=== PATIENT | female | born 1990 | race Caucasian/White ===

== ENCOUNTER 2017-04-08 09:53 | Day surgery (SDC) | payer OTHER ==
[~2017-04-08 09:53] MED LIST: ACETAMINOPHEN 160 MG/5 ML BTL PO PRN; DEXAMETHASONE SOD PHOSPHATE 10 MG/ML VIAL IV PRN; MORPHINE SULFATE 2 MG/ML DISP.SYRIN IV PRN; MORPHINE SULFATE 4 MG/ML SYRG IV PRN; ONDANSETRON HCL/PF 2 MG/ML VIAL IV PRN; PROMETHAZINE HCL 5 MG in DEXTROSE 5 % IN WATER 50 ML IV PRN; RINGERS SOLUTION,LACTATED 1,000 ML IV PRN; oxyCODONE HCL 5 MG/5 ML UDC PO PRN
--- OUTSIDE RECORDS SUMMARY | 2017-04-08 09:58 | XMS REPORT | Continuity of Care Document ---
:1990 Author Organization [facility] ([facility]) Address [address] [place] [address] Phone [phone] Care Team Providers Name Role Phone Provider, No-Primary Care Primary Care Provider Unavailable Source Comments This disclosure is being made pursuant to the Care Everywhere program, applicable federal and state laws, and may not contain all informaitonavailable regarding this patient.[facility] ([facility]) Active Allergies and Adverse Reactions Allergen Noted Date Severity Reactions Comments Eletriptan Hbr 03/30/2010 OTHER Body tenses up Current Medications Prescription Sig. Disp. Refills Start Date End Date Status LORazepam (ATIVAN) 0.5 mg Take 0.5-1 mg by 03/30/2010 Active tablet mouth daily as needed. PARoxetine (PAXIL) 30 mg Take 30 mg by Active tablet mouth daily. Active Problems Not on file Social History Tobacco Use Types Packs/Day Years Used Date Never Assessed Last Filed Vital Signs Vital Sign Reading Time Taken Blood Pressure 103/77 03/30/2010 6:23 AM CDT Pulse 80 03/30/2010 6:23 AM CDT Temperature 35.4 C (95.7 F) 03/30/2010 6:23 AM CDT Respiratory Rate 18 03/30/2010 6:23 AM CDT Height 1.676 m (5' 6") 03/30/2010 6:23 AM CDT Weight 63.504 kg (140 lb) 03/30/2010 6:23 AM CDT Body Mass Index 22.61 03/30/2010 6:23 AM CDT Oxygen Saturation 99% 03/30/2010 6:23 AM CDT Plan of Care Health Maintenance Due Date Last Done Comments Hepatitis B Vaccine (1 of 3 - Primary Series) 1989 Tdap Vaccine 2000 Cervical Cancer Screening 2007 Lipid Disorder Screening 2007 MMR Vaccine 2007 Td Vaccine 2007 Varicella Vaccine (1 of 2 - Adult - No Evidence of 2007 Immunity) Influenza Vaccine: Seasonal (#1) 2016 Results from Last 3 Months Not on file
[2017-04-08] MEDS ORDERED: RINGERS SOLUTION,LACTATED 1,000 ML IV ONE ×2 (10:40→13:30)
[2017-04-08] MEDS ORDERED: SCOPOLAMINE HYDROBROMIDE 1.5 MG PATC TD ONE (11:00)
[2017-04-08] MEDS ORDERED: BUPIVACAINE HCL 50 ML VIAL IJ ONE (11:50)
[2017-04-08] MEDS ORDERED: diphenhydrAMINE HCL 50 MG/ML VIAL IV PRN (12:16)
[2017-04-08] MEDS ORDERED: MORPHINE SULFATE 4 MG/ML SYRG IV ONE (12:16)
[2017-04-08] MEDS ORDERED: MORPHINE SULFATE 4 MG/ML SYRG IV PRN (12:16)
[2017-04-08] MEDS ORDERED: NALOXONE HCL 0.4 MG/ML VIAL IV PRN (12:16)
[2017-04-08] MEDS ORDERED: PROMETHAZINE HCL 12.5 MG in DEXTROSE 5 % IN WATER 50 ML IV PRN ×2 (12:16)
[2017-04-08 13:35] VITALS: BP 130/95
== END 2017-04-08 09:54 | disposition home or self-care (01) ==
LOC: AMB 09:53
PROVIDERS: ATTEND Allergy & Immunology
PROC: 0CTQXZZ Resection of Adenoids, External Approach (ICD-10-PCS; 2017-04-08)
PROC: 0CTPXZZ Resection of Tonsils, External Approach (ICD-10-PCS; principal; 2017-04-08 10:55)
DX: J35.03 Chronic tonsillitis and adenoiditis (principal); Z68.27 Body mass index [BMI] 27.0-27.9, adult

== ENCOUNTER 2017-04-11 04:48 | Emergency (ER) | payer OTHER ==
[2017-04-11] MEDS ORDERED: HYDROmorphone HCL 2 MG/ML VIAL IV ONE (05:06)
[2017-04-11] MEDS ORDERED: METOCLOPRAMIDE HCL 5 MG/ML VIAL IV ONE (05:07)
[2017-04-11] MEDS ORDERED: METOCLOPRAMIDE HCL 5 MG/ML VIAL ONE (05:12)
[2017-04-11] MEDS ORDERED: KETOROLAC TROMETHAMINE 30 MG/ML VIAL ONE (05:12)
[2017-04-11] MEDS ORDERED: HYDROmorphone HCL 2 MG/ML VIAL ONE (05:12)
[2017-04-11] MEDS ORDERED: KETOROLAC TROMETHAMINE 30 MG/ML VIAL IV ONE (05:14)
[2017-04-11] MEDS ORDERED: DEXAMETHASONE SOD PHOSPHATE 10 MG/ML VIAL IV ONE (05:15)
--- NOTE | 2017-04-11 05:15 | ERNOTE ---
ENT HPI Date of Service: 04/11/17 Presenting Symptoms: other - post-tonsillectomy pain Time Seen by Provider: 04/11/17 05:00 - Immun/Allergies/Home Medications Immunizations: IMMUNIZATION HX History of Influenza Vaccine Yes Hx Pneumococcal Vaccination No Allergies/Adverse Reactions: Allergies Allergy/AdvReac Type Severity Reaction Status Date / Time eletriptan HBr [From Relpax] AdvReac Mild Muscle Pain Verified 04/11/17 04:56 Home Medications: HOME MEDICATIONS Fexofenadine/Pseudoephedrine [Carrie-D 24 Hour Tablet] 1 each PO DAILY [Last Taken Unknown] Norgestimate-Ethinyl Estradiol [Ortho Tri-Cyclen] 1 each PO DAILY 04/07/17 [ Last Taken Unknown] Fluticasone Propionate [Flonase] 2 spray NS DAILY 04/08/17 [Last Taken Unknown] Acetaminophen [Tylenol] 325 mg PO Q4H PRN 04/11/17 [Last Taken 04/10/17 14:55] Ibuprofen [Motrin] 200 mg PO PRN PRN 04/11/17 [Last Taken 04/10/17 19:20] oxyCODONE HCL [Roxicodone solution] 10 mg PO Q4H PRN 04/11/17 [Last Taken 23:20] - History of Present Illness Narrative: Had tonsillectomy 3 days ago. Has been taking oxycodone 10 mg every 4 hours, tylenol 325 mg every 4 hours, and ibuprofen 400 mg every 4 hours. Pain has not improved and now is 10/10. Has been gargling with 1/2 H20 + 1/2 H2O2 solution. Had some vomiting this morning with about 100 ml of blood. No previous bleeding. Review of Systems - Review of Systems EYE: Present: no symptoms reported ENT: Present: See HPI Respiratory: Present: no symptoms reported Cardiology: Present: no symptoms reported Genitourinary: Present: no symptoms reported Musculoskeletal: Present: no symptoms reported - Patient's Past Medical History Patient History - Medical: Anxiety, Depression, Headache, Kidney stone, Migraines, UTI'S, Other Patient History - Cardiac/Respiratory: Bronchitis Patient History - Cancer: No Hx of Cancer Patient History - Surgical Procedures: , T & A, Other, Orthopedic Patient History - Other: None LMP (Calendar): 04/04/17 - Family History Mother Family History - Medical: Diabetes Type 2, Seizures, Other Family History - Cardiac/Respiratory: Bronchitis, COPD, Other Family History - Cancer: No pertinent family hx Father Family History - Medical: Other Family History - Cardiac/Respiratory: History Unknown Family History - Cancer: History Unknown - Social History Living Situations: home Abuse History: No History of abuse Psych History: Hx of Anxiety, Hx of Depression Smoking Status: Never smoker Alcohol Use: rarely Drug Use: none - Immunizations Hx Pneumococcal Vaccination: No History of Influenza Vaccine: Yes Physical Exam - Physical Exam General Appearance: Present: wd/wn, alert, severe distress, anxious, irritable, crying Eye Exam: Normal inspection: bilateral Ears, Nose, Throat: Present: other - Tonsillectomy sulcus post-op without bleeding. Pharyngeal swelling with erythemia. Neck: Present: normal inspection Respiratory: Present: no respiratory distress Cardiovascular/Chest: Present: regular rate, rhythm Extremity Exam: Present: normal inspection Neurological Exam: Present: alert, oriented ED Progress - Vital Signs Patient's Vital Signs:: I have reviewed the patient's vital signs. Vital Signs: Vital Signs 04/11/17 04:51 Temperature 37.6 C H Pulse Rate 116 H Respiratory 18 Rate Blood Pressure 157/73 O2 Sat by Pulse 98 Oximetry - Progress/Reassessment Chief Complaint: Sore Throat Progress:: Improved Progress Note-Subjective: 04/11/17 05:40 After course of meds she is improved, sitting up comfortably eating a popcicle. Plan - Plan Plan: home with revision of pain meds. Departure Clinical Impression: Post-operative pain - Departure Disposition: Home self-care Condition: Good Instructions: Tonsillectomy, Adult, Care After Additional Instructions: Revise pain medicine: 1. Use alternating tylenol 1000 mg with ibuprofen 600 mg every 3 hours 2. Use oxycodone every 4 hours for breakthrough pain 3. Continue water/peroxide gargles Follow up with ENT surgeon
--- OUTSIDE RECORDS SUMMARY | 2017-04-11 05:16 | XMS REPORT | Continuity of Care Document ---
:1990 Author Organization [facility] ([facility]) Address [address] [place] [address] Phone [phone] Care Team Providers Name Role Phone Provider, No-Primary Care Primary Care Provider Unavailable Source Comments This disclosure is being made pursuant to the Care Everywhere program, applicable federal and state laws, and may not contain all informaitonavailable regarding this patient.[facility] ([facility]) Active Allergies and Adverse Reactions Allergen Noted [...]
[2017-04-11] MEDS ORDERED: NORMAL SALINE 500 ML IV ONE (05:17)
[2017-04-11] MEDS ORDERED: DEXAMETHASONE SOD PHOSPHATE 10 MG/ML VIAL ONE (05:21)
[2017-04-11 06:06] VITALS: BP 122/70
== END 2017-04-11 06:05 | disposition home or self-care (01) ==
LOC: ER 04:48
DX: G89.18 Other acute postprocedural pain (principal); Z87.440 Personal history of urinary (tract) infections; Z87.442 Personal history of urinary calculi

== ENCOUNTER 2017-04-15 10:23 | Emergency (ER) | payer OTHER ==
--- OUTSIDE RECORDS SUMMARY | 2017-04-15 10:46 | XMS REPORT | Continuity of Care Document ---
:1990 Author Organization [facility] ([facility]) Address [address] [place] [address] Phone [phone] Care Team Providers Name Role Phone Provider, No-Primary Care Primary Care Provider Unavailable Source Comments This disclosure is being made pursuant to the Care Everywhere program, applicable federal and state laws, and may not contain all informaitonavailable regarding this patient.[facility] ([facility]) Active Allergies and Adverse Reactions Allergen Noted [...]
[2017-04-15] MEDS ORDERED: NORMAL SALINE 1,000 ML IV ONE (10:55)
[2017-04-15] MEDS ORDERED: MORPHINE SULFATE 4 MG/ML SYRG IV ONE (10:56)
[2017-04-15] MEDS ORDERED: MORPHINE SULFATE 4 MG/ML SYRG ONE (11:04)
[2017-04-15 11:09] LABS: Hematocrit 41.8 % (37.0-47.0); Hemoglobin 14.8 gm/dL (12.5-16.0); Mean Cell Volume 84.6 fl (78-100); Mean Corpuscular Hgb Conc 35.4 g/dl (32-36); Mean Platelet Volume 9.7 fl (6.0-9.5); Neutrophil # 6.8 K/mm3 (1.3-6.0); Neutrophil % 75.7 % (42-75.0); Platelet Count 279 K/mm3 (150-450); Red Blood Count 4.94 M/mm3 (4.2-5.4); Red Cell Distribution Width 11.8 % (11.5-14.0)
[2017-04-15] MEDS ORDERED: ONDANSETRON HCL/PF 2 MG/ML VIAL ONE (11:15)
[2017-04-15] MEDS ORDERED: ONDANSETRON HCL/PF 2 MG/ML VIAL IV ONE (11:18)
--- NOTE | 2017-04-15 12:42 | ERNOTE ---
Medical Problem HPI - Narrative Date of Service: 04/15/17 - General Chief Complaint: General Assessment Time Seen by Provider: 04/15/17 10:38 Source: patient Exam Limitations: no limitations - Immun/Allergies/Home Medications Immunizations: IMMUNIZATION HX History of Influenza Vaccine Yes Hx Pneumococcal Vaccination No Allergies/Adverse Reactions: Allergies eletriptan HBr [From Relpax] Adverse Reaction (Mild, Verified 04/15/17 10:30) Muscle Pain Home Medications: HOME MEDICATIONS Fexofenadine/Pseudoephedrine [Carrie-D 24 Hour Tablet] 1 each PO DAILY [Last Taken Unknown] Norgestimate-Ethinyl Estradiol [Ortho Tri-Cyclen] 1 each PO DAILY 04/07/17 [ Last Taken Unknown] Fluticasone Propionate [Flonase] 2 spray NS DAILY 04/08/17 [Last Taken Unknown] Acetaminophen [Tylenol] 325 mg PO Q4H PRN 04/11/17 [Last Taken 04/10/17 14:55] Ibuprofen [Motrin] 200 mg PO PRN PRN 04/11/17 [Last Taken 04/10/17 19:20] oxyCODONE HCL [Roxicodone solution] 10 mg PO Q4H PRN 04/11/17 [Last Taken 23:20] - History of Present History Narrative: Patient presents to the ED for bleeding after tonillsectomy. She relates a fair amount of blood [employer]ICIAN from her throat. She has been having severe pain in her throat for several days and that continues but no new acute worsening. Some cough. Has appointment with Dr Angel at 1pm but came here d/t the bleeding. Timing: resolved prior to arrival Severity: severe Modifying Factors - (Improves): Present: other - nothing Modifying Factors - (Worsens): Present: other - swallowing Review of Systems - Review of Systems ENT: Present: See HPI Respiratory: Absent: shortness of breath Cardiology: Absent: chest pain Gastrointestinal/Abdominal: Present: eating less Skin: Absent: rash - Patient's Past Medical History Patient History - Medical: Anxiety, Depression, Headache, Kidney stone, Migraines, UTI'S, Other Patient History - Cardiac/Respiratory: Bronchitis Patient History - Cancer: No Hx of Cancer Patient History - Surgical Procedures: , T & A, Other, Orthopedic Patient History - Other: None LMP (females 10-50): now LMP (Calendar): 04/04/17 - Family History Mother Family History - Medical: Diabetes Type 2, Seizures, Other Family History - Cardiac/Respiratory: Bronchitis, COPD, Other Family History - Cancer: No pertinent family hx Father Family History - Medical: Other Family History - Cardiac/Respiratory: History Unknown Family History - Cancer: History Unknown - Social History Living Situations: home Abuse History: No History of abuse Psych History: Hx of Anxiety, Hx of Depression Alcohol Use: rarely Drug Use: none - Immunizations Hx Pneumococcal Vaccination: No History of Influenza Vaccine: Yes Physical Exam - Physical Exam General Appearance: Present: alert, no apparent distress Eye Exam: Normal inspection: bilateral, PERRL: bilateral Ears, Nose, Throat: Present: other - post-surgical. There is a small amount of adherent blood left tonsillar pillar. No active bleeding. No abscess noted. No evidence of epiglottitis. Respiratory: Present: no respiratory distress, normal breath sounds, lungs clear Cardiovascular/Chest: Present: regular rate, rhythm Gastrointestinal/Abdominal: Present: normal bowel sounds, nontender, soft Extremity Exam: Present: normal inspection Neurological Exam: Present: alert, normal mood/affect, no motor/sensory deficits Skin Exam: Absent: skin rash ED Progress - Results and Orders Patient's Lab Results:: I have reviewed the patient's lab results. - Vital Signs Patient's Vital Signs:: I have reviewed the patient's vital signs. Vital Signs: Vital Signs 04/15/17 04/15/17 10:28 11:53 Temperature 36.4 C L Pulse Rate 133 H 91 Respiratory 15 16 Rate Blood Pressure 147/117 O2 Sat by Pulse 100 97 Oximetry - Progress/Reassessment Chief Complaint: General Assessment Progress Note-Subjective: 04/15/17 12:39 patient seen in the ED by Dr Angel, ENT. He wrote pain medication script after his procedure and will see the patient in F/U. IV fluids given, CBC reviewed. She feels like going home. I disucssed warning signs and reasons to return as well as the need for close f/u. Departure - Departure Clinical Impression: Post-tonsillectomy hemorrhage Disposition: Home self-care Condition: Stable Instructions: Tonsillectomy, Adult, Care After Additional Instructions: Rest. Fluids. Follow-up as directed. Return for increased pain, bleeding or if your condition worsens or changes in any way.
[2017-04-15 13:52] VITALS: BP 143/97
== END 2017-04-15 12:43 | disposition home or self-care (01) ==
LOC: ER 10:23
DX: I97.620 Postprocedural hemorrhage of a circulatory system organ or structure following other procedure (principal); G89.18 Other acute postprocedural pain
CPT/HCPCS: 36415; 42960; 85025; 96374; 96375; 99284; J2405

== ENCOUNTER 2017-04-17 17:40 | Emergency (ER) | payer OTHER ==
[2017-04-17] MEDS ORDERED: oxyCODONE HCL 5 MG TABLET PO ONE (18:06)
--- OUTSIDE RECORDS SUMMARY | 2017-04-17 18:06 | XMS REPORT | Continuity of Care Document ---
:1990 Author Organization [facility] ([facility]) Address [address] [place] [address] Phone [phone] Care Team Providers Name Role Phone Provider, No-Primary Care Primary Care Provider Unavailable Source Comments This disclosure is being made pursuant to the Care Everywhere program, applicable federal and state laws, and may not contain all informaitonavailable regarding this patient.[facility] ([facility]) Active Allergies and Adverse Reactions Allergen [...]
[2017-04-17 18:14] LABS: Hematocrit 44.8 % (37.0-47.0); Hemoglobin 15.5 gm/dL (12.5-16.0); Mean Cell Volume 85.8 fl (78-100); Mean Corpuscular Hemoglobin 29.7 pg (27-31); Mean Corpuscular Hgb Conc 34.6 g/dl (32-36); Mean Platelet Volume 9.7 fl (6.0-9.5); Neutrophil # 2.5 K/mm3 (1.3-6.0); Neutrophil % 51.5 % (42-75.0); Platelet Count 329 K/mm3 (150-450); Red Blood Count 5.22 M/mm3 (4.2-5.4); Red Cell Distribution Width 11.6 % (11.5-14.0); White Blood Count 4.9 K/mm3 (4.0-10.5)
[2017-04-17] MEDS ORDERED: oxyCODONE HCL 5 MG TABLET ONE (18:20)
--- NOTE | 2017-04-17 18:29 | ERNOTE ---
Medical Problem HPI - Narrative Date of Service: 04/17/17 - General Chief Complaint: General Assessment Time Seen by Provider: 04/17/17 18:01 Source: patient, RN notes reviewed, old records Exam Limitations: no limitations - Immun/Allergies/Home Medications Immunizations: IMMUNIZATION HX Immunizations Up to Date Yes History of Influenza Vaccine Yes Hx Pneumococcal Vaccination No Allergies/Adverse Reactions: Allergies eletriptan HBr [From Relpax] Adverse Reaction (Mild, Verified 04/17/17 17:48) Muscle Pain Home Medications: HOME MEDICATIONS Fexofenadine/Pseudoephedrine [Carrie-D 24 Hour Tablet] 1 each PO DAILY [Last Taken Unknown] Norgestimate-Ethinyl Estradiol [Ortho Tri-Cyclen] 1 each PO DAILY 04/07/17 [ Last Taken Unknown] Fluticasone Propionate [Flonase] 2 spray NS DAILY 04/08/17 [Last Taken Unknown] Acetaminophen [Tylenol] 325 mg PO Q4H PRN 04/11/17 [Last Taken 04/10/17 14:55] Ibuprofen [Motrin] 200 mg PO PRN PRN 04/11/17 [Last Taken 04/10/17 19:20] oxyCODONE HCL [Roxicodone solution] 10 mg PO Q4H PRN 04/11/17 [Last Taken 23:20] Roxicodone 04/17/17 [Last Taken Unknown] - History of Present History Narrative: 26 y/o female ambulatory to the ED for bleeding in her throat after having a tonsillectomy on 04/08/17. She was seen here 2 days ago with the same problem. Dr. Angel, who performed the surgery, was contacted. He cauterized the area of bleeding. The patient reports having a small amount of bleeding yesterday that resolved on its own. Date (Duration): 04/17/17 Time (Timing): 17:00 Review of Systems - Review of Systems Constitutional: Absent: fever, chills EYE: Present: no symptoms reported ENT: Present: sore throat. Absent: nose congestion, nasal drainage Respiratory: Absent: shortness of breath, cough Cardiology: Absent: chest pain, syncope Gastrointestinal/Abdominal: Absent: nausea, vomiting Genitourinary: Present: no symptoms reported Musculoskeletal: Present: no symptoms reported Skin: Absent: rash, lesions Neurological: Absent: headache, dizziness/light-headedness Endocrine: Present: no symptoms reported Hematologic/Lymphatic: Absent: easy bruising, easy bleeding Psych: Present: no symptoms reported - Patient's Past Medical History Patient History - Medical: Anxiety, Depression, Headache, Kidney stone, Migraines, UTI'S, Other Patient History - Cardiac/Respiratory: Bronchitis Patient History - Cancer: No Hx of Cancer Patient History - Surgical Procedures: , T & A, Other, Orthopedic Patient History - Other: None LMP (females 10-50): last week LMP (Calendar): 04/04/17 - Family History Mother Family History - Medical: Diabetes Type 2, Seizures, Other Family History - Cardiac/Respiratory: Bronchitis, COPD, Other Family History - Cancer: No pertinent family hx Father Family History - Medical: Other Family History - Cardiac/Respiratory: History Unknown Family History - Cancer: History Unknown - Social History Living Situations: spouse Abuse History: No History of abuse Psych History: Hx of Anxiety, Hx of Depression Smoking Status: Never smoker Alcohol Use: rarely Drug Use: none - Immunizations Immunizations Up to Date: Yes Hx Pneumococcal Vaccination: No History of Influenza Vaccine: Yes Physical Exam - Physical Exam General Appearance: Present: wd/wn, alert, mild distress, anxious Eye Exam: Normal inspection: bilateral Ears, Nose, Throat: Present: other - small amount of blood present in tonsillar fossa bilaterally but no obvious sourse of bleeding. Absent: dry mucous membranes Neck: Present: normal inspection, nontender, supple. Absent: lymphadenopathy (R ), lymphadenopathy (L) Respiratory: Present: no respiratory distress, normal breath sounds, no accessory muscle use, lungs clear Cardiovascular/Chest: Present: regular rate, rhythm, no murmur, normal peripheral pulses Neurological Exam: Present: alert, oriented, normal mood/affect Skin Exam: Present: normal color, warm/dry ED Progress - Results and Orders Patient's Lab Results:: I have reviewed the patient's lab results. - Vital Signs Patient's Vital Signs:: I have reviewed the patient's vital signs. Vital Signs: Vital Signs 04/17/17 17:42 Temperature 36.0 C L Pulse Rate 100 Respiratory 16 Rate Blood Pressure 160/110 O2 Sat by Pulse 100 Oximetry - Progress/Reassessment Chief Complaint: General Assessment Progress:: Improved Progress Note-Subjective: 04/17/17 18:35 Patient has been drinking ice water, no active bleeding noted on re-exam. Hgb up to 15.5 from 14.8 on 04/15/17. 04/17/17 19:00 Again, no active bleeding noted. Patient tolerating oral intake. Departure - Departure Clinical Impression: Post-tonsillectomy hemorrhage Disposition: Home Follow Up Needed Condition: Stable Instructions: Tonsillectomy, Adult, Care After Additional Instructions: Push fluids Increase humidity at home Return as needed Referrals: Enrique Angel MD [Courtesy Staff] -
[2017-04-17 19:07] VITALS: BP 152/89
== END 2017-04-17 19:04 | disposition home or self-care (01) ==
LOC: ER 17:40
DX: K91.841 Postprocedural hemorrhage of a digestive system organ or structure following other procedure (principal); F41.8 Other specified anxiety disorders

== ENCOUNTER 2021-01-17 05:02 | Inpatient (IN) ==
[2021-01-17] MEDS ORDERED: RINGER'S SOLUTION,LACTATED 1,000 ML IV PRN ×2 (06:24→06:27)
[2021-01-17] MEDS ORDERED: Oxytocin/Ringers Lactate 20 UNITS/1,000 ML BAG IV ONE (06:39)
--- NOTE | 2021-01-17 07:05 | ANES ---
Anesthesia Pre Procedure Eval Vitals/Labs: Last Vital Signs Temp 36.7 C 01/17/21 06:15 Pulse 98 01/17/21 06:15 Resp 22 H 01/17/21 06:15 BP 128/80 01/17/21 06:15 Pulse Ox 98 01/17/21 06:15 HOME MEDICATIONS fexofenadine 180 mg tablet 180 mg PO DAILY 01/28/19 [Last Taken 01/16/21 08:00] acetaminophen 500 mg tablet 1,000 mg PO Q6H PRN tab 06/05/19 [Last Taken 01/07/21 1400] biotin 5 mg capsule 5 mg PO DAILY 06/11/20 [Last Taken 01/16/21 08:00] calcium carbonate 500 mg calcium (1,250 mg) chewable tablet 500 mg PO DAILY 06/11/20 [Last Taken Unknown] metoprolol succinate 25 mg tablet,extended release 24 hr 25 mg PO BID #60 tab 06/11/20 [Last Taken 01/17/21 04:00] aspirin 81 mg tablet,delayed release 81 mg PO DAILY #30 tab 08/12/20 [Last Taken 01/16/21 08:00] magnesium 250 mg tablet 1,000 mg PO DAILY PRN 08/12/20 [Last Taken Unknown] ferrous sulfate 325 mg (65 mg iron) tablet 325 mg PO DAILY #30 tab 10/28/20 [Last Taken 01/16/21 08:00] acetone (urine) test See Rx Instructions .ROUTE .MEDSUPPLY #100 ea 10/31/20 [Last Taken 01/08/21 0710] blood sugar diagnostic See Rx Instructions .ROUTE .MEDSUPPLY #100 ea 11/28/20 [Last Taken 01/08/21 0601] blood-glucose meter See Rx Instructions .ROUTE .MEDSUPPLY #1 ea 11/28/20 [Last Taken 01/08/21 0601] insulin syringe-needle U-100 1 mL 30 gauge x 5/16" See Rx Instructions .ROUTE .MEDSUPPLY #100 ea 11/28/20 [Last Taken 01/08/21 0601] lancets 30 gauge See Rx Instructions .ROUTE .MEDSUPPLY #100 ea 11/28/20 [Last Taken Unknown] Vits96/Iron Fum/Folic [ S] 1 tab PO DAILY 01/01/21 [Last Taken 01/16/21 08:00] Allergies/Adverse Reactions: Allergies Allergy/AdvReac Type Severity Reaction Status Date / Time eletriptan HBr [From Relpax] AdvReac Mild Muscle Pain Verified 01/16/21 13:18 - Planned Procedure Planned Procedure: Repeat Section with poss abdominal scar r Medication List Reviewed:: Yes Allergies Verified: Yes Medical History (Last Reviewed 01/17/21 @ 07:04 by Abdi Rivas CRNA) Anemia affecting (Acute) Onset Date: 10/28/20 Hypertension (Chronic) Anxiety (Chronic) stable on Lexapro Ovarian cyst (Acute) Simple 3.45cm right ovarian cyst. SLAP lesion of right shoulder (Resolved) Shoulder injury (Resolved) Onset Date: ~11/07/18 right work comp Right shoulder strain (Resolved) Lumbar strain (Resolved) Palpitations (Chronic) COVID-19 vaccine series completed Onset Date: 12/13/20 11/15/2020 Palpitations Onset Date: 01/2018 benign Allergic dermatitis due to poison oak Onset Date: Unknown Itchy Rash Allergy to poison raj Onset Date: Unknown Itchy Rash Anxiety Onset Date: Unknown History of sinusitis Onset Date: Unknown Hypertension Onset Date: Unknown Incomplete emptying of bladder Onset Date: 05/22/16 Low back pain Onset Date: Unknown Scar pain Onset Date: 05/22/16 Suspect superficial nerve entrapment. Possible endometriosis. Sinus tachycardia Onset Date: Unknown Tattoos Onset Date: Unknown Chronic LLQ pain (Resolved) Suspect adhesions from prior C/S Dysmenorrhea (Resolved) Female infertility, unexplained (Resolved) Ganglion cyst Onset Date: Unknown Kidney stones Onset Date: Unknown Post-operative pain (Resolved) Post-tonsillectomy hemorrhage (Resolved) Surgical History (Last Reviewed 01/17/21 @ 07:04 by Abdi Rivas CRNA) Previous section (Chronic) Repeat delivery scheduled for tomorrow ORIF left wrist S/P arthroscopy of right shoulder Onset Date: 02/16/19 mini open biceps tenodesis and superior labral debridement History of oral surgery Onset Date: Unknown At age 1 Previous section Onset Date: ~2010 Status post tonsillectomy and adenoidectomy Onset Date: ~04/2017 Age 26. Post-op hemorrhage. Status post wrist surgery Onset Date: Unknown Fx in childhood. Ganglion cyst removed. Family History (Last Reviewed 01/17/21 @ 07:04 by Abdi Rivas CRNA) Mother Hx of migraines Diabetes Bipolar disorder Kidney stones Neuropathy Left arm from MVA. Seizures Pneumonia Father Unknown family medical history Brother Psych Issues Grandfather Alcoholism Lymphoma Tobacco abuse Grandfather Skin cancer Neck mass With I/D Pneumonia Grandmother Unknown family medical history Grandmother DVT (deep venous thrombosis) Heart disease 9 stents Tobacco abuse Pneumonia Cancer Lung - Family Anesthesia History Family History:: no untoward family reactions to anesthesia - Airway/Neck/Teeth Within Normal Limits:: Yes Teeth Condition: intact Neck Exam: full range of motion Mallampatti Score: 2 Thyromental (T-M) distance: > 6 cm Mandibulo Hyoid distance: > 3 cm - Respiratory Respiratory Physical: lungs clear Smoking Status: Former smoker Sleep Apnea currently treated: No Sleep Apnea by current assessment: No - Cardiovascular Cardiac History: hypertension Tolerate Activity: Good Heart Sounds: S1 & S2, Regular - Gastrointestinal NPO since: mn - Anesthesia Assessment and Plan ASA Class: PS, II Anesthesia Type Plan: Spinal - bilat tap block Planned difficult intubation/equipment available: No
[2021-01-17] MEDS ORDERED: ceFAZolin SODIUM 1 GM VIAL ONE (07:06)
[2021-01-17] MEDS ORDERED: BUPIVACAINE HCL/EPINEPHRINE 50 ML VIAL IJ ONE (07:08)
[2021-01-17] MEDS ORDERED: NORMAL SALINE 20 ML VIAL ONE (07:08)
[2021-01-17] MEDS ORDERED: EPINEPHrine 1 MG/ML AMPUL ONE (07:08)
[2021-01-17] MEDS ORDERED: ONDANSETRON HCL/PF 2 MG/ML VIAL ONE (08:18)
[2021-01-17] MEDS ORDERED: SIMETHICONE 80 MG TAB.CHEW PO PRN (09:10)
[2021-01-17] MEDS ORDERED: BISACODYL 10 MG SUPP.RECT RC PRN (09:10)
[2021-01-17] MEDS ORDERED: SENNOSIDES 8.6 MG TABLET PO PRN (09:10)
[2021-01-17] MEDS ORDERED: ONDANSETRON HCL/PF 2 MG/ML VIAL IV PRN (09:10)
[2021-01-17] MEDS ORDERED: IBUPROFEN 800 MG TABLET PO PRN (09:10)
--- NOTE | 2021-01-17 09:16 | OR ---
Operative Report - Dictated Report Narrative: Indication: 30-year-old 2 para 1 at 39 weeks admitted for repeat low transverse section. status: Planned Pre Operative Diagnosis: 39-week intrauterine . Chronic hypertension on medication-stable. Gestational ccofbyyo-zxomfxh-drdabztep. Post Operative Diagnosis: Same. Procedure: Repeat low transverse section. Surgeon: James Du DO Event Organizer: OR Staff Anesthesia: Spinal, TAP block Estimated Blood Loss: 900 mL Urine Output: 450 mL clear urine Fluids Replacement: 1800 mL of crystalloid Drains: Elkins to gravity Surgical Complications: None Specimens: Placenta to pathology Findings: Female born at 0814 on 01/17/2022 with Apgars 9 and 9, weighing 3389 g in cephalic presentation. Normal uterus, tubes, ovaries Technique: The patient was taken to the operating room and placed in dorsal supine position with a left lateral tilt. After adequate spinal anesthesia, elkins catheter inserted, SCDs placed, and 2 g of Ancef given preoperatively, the abdominal cavity was entered using sharp and blunt dissection. Two rolled laps were placed in the pericolic gutters on either side of the uterus. A transverse incision was made in the lower uterine segment and extended laterally and upwardly with digital traction. Clear fluid was noted upon amniotomy. The infant was delivered easily. The cord was clamped and cut and infant was handed off to awaiting dairy equipment repairer. The placenta was allowed to deliver spontaneously. The uterus was cleared of clot and debris. Uterine incision was closed with 0 Vicryl using a running stitch. A second imbricating layer was placed. Excellent hemostasis was noted. The rolled laps were removed from the abdominal cavitiy. The peritoneum was closed with a running 3-0 Monocryl. The same suture was used to approximate the rectus and pyramidalis muscles. The fascia was closed with a running 0 Vicryl. The subcutaneous layer was closed with a running 3-0 Monocryl. The same suture was used to approximate the subdermal layer. The skin was closed with a running 4-0 Monocryl and Dermabond. Sponge, lap, needle, and instrument count were correct x 2. Disposition: To post anesthesia care unit in good condition History for MU History for MU Definition: * The number of deliveries resulting in a live the patient experienced prior to current hospitalization * The previous delivery of live twins or any live multiple gestation is considered one live event. *If primagravida or nulliparous is documented select zero for the number of previous live births. Live Events: Live Events: 1
--- NOTE | 2021-01-17 09:23 | ANES ---
Post Anesthesia Discharge - Transfer of Care Transfer of Care handoff given to nurse: Yes - Discharge from PACU Discharge from PACU when meets criteria: Yes
--- NOTE | 2021-01-17 09:26 | ANES ---
Anesthesia Procedure Note Procedure Note: ANESTHESIA PROCEDURE NOTE Date of procedure: 06/19/2021. Time of procedure: 07 11. Performed by: Remigio Rivas CRNA Or Assistant: Martha Long RN . Preprocedure diagnosis: Status post section. Post procedure diagnosis: Same. Procedure: Ultrasound-guided bilateral tap block Indications: Postoperative analgesia. Findings: Patient is brought to the PACU and placed in a supine position. Patient's right abdominal wall was prepped with ChloraPrep. Ultrasound utilized to identify the fascial layer between the internal oblique and transabdominus muscles. A 20-gauge 4 inch regional block needle was advanced under ultrasound guidance till tip of needle was placed just distal to fascial layer. 20 mL of 0.25% Marcaine with epinephrine 1-200,000 was injected with adequate spread of local anesthesia noted. Procedure was then repeated on patient's left side. EBL: Minimal. Fluids: N/A. Specimen: N/A. Post procedure condition: The patient tolerated the procedure well. No complications were noted. Thank you for this consultation Remigio Rivas CRNA
--- NOTE | 2021-01-17 09:29 | ANES ---
Post Anesthesia Assessment - Vital Signs Vitals: Last Vital Signs Temp 36.6 C 01/17/21 09:05 Pulse 94 01/17/21 09:20 Resp 14 01/17/21 09:20 BP 148/68 H 01/17/21 09:20 Pulse Ox 98 01/17/21 09:20 Airway Patency: Normal - Mental Status Level Of Consciousness: Awake - Pain Level Pain Score: 2 - N/V Assessment Nausea/Vomiting Presence: None Dehydration:: No
[2021-01-17] MEDS: IBUPROFEN 800 MG TABLET PO PRN ×3 (09:54→23:07)
[2021-01-17] MEDS: oxyCODONE HCL/ACETAMINOPHEN 1 TAB TABLET PO PRN ×7 (09:54→23:57)
[2021-01-17] MEDS: DOCUSATE SODIUM 100 MG CAPSULE PO SCH (20:55)
[2021-01-17] MEDS: METOPROLOL SUCCINATE 25 MG TABLET.SA PO SCH (20:55)
[2021-01-18] MEDS: oxyCODONE HCL/ACETAMINOPHEN 1 TAB TABLET PO PRN ×5 (02:54→22:19)
[2021-01-18] MEDS: IBUPROFEN 800 MG TABLET PO PRN ×3 (05:11→17:27)
[2021-01-18] MEDS ORDERED: ceFAZolin SODIUM 1 GM VIAL IV PRN (06:00)
[2021-01-18] MEDS: LORATADINE 10 MG TABLET PO SCH (08:49)
[2021-01-18] MEDS: PRENATAL VITS96/IRON FUM/FOLIC 1 TAB TABLET PO SCH (08:49)
[2021-01-18] MEDS: FERROUS SULFATE 325 MG TABLET PO SCH (08:49)
[2021-01-18] MEDS: METOPROLOL SUCCINATE 25 MG TABLET.SA PO SCH ×2 (08:49→20:26)
[2021-01-18] MEDS: MAGNESIUM OXIDE 400 MG TABLET PO SCH (09:06)
[2021-01-18] MEDS: CALCIUM CARBONATE 500 MG TAB.CHEW PO SCH (09:06)
--- NOTE | 2021-01-18 10:58 | PN ---
Subjective - Date and Time Seen Date: 01/18/21 Time: 10:56 Objective - Vitals Vitals: Last Vital Signs Temp 36.5 C 01/18/21 06:55 Pulse 80 01/18/21 08:49 Resp 20 01/18/21 06:55 BP 109/61 01/18/21 08:49 Pulse Ox 96 01/18/21 06:55 Patient denies complaints. Tolerating regular diet. Ambulating without difficulty. Pain well controlled. Lochia wnl. Abdomen - soft, appropriately tender Incision -clean, dry, intact uterus - firm, at umbilicus -1 No calf tenderness Impression: Post op day #1 s/p repeat section. Plan: Continue routine post-operative/ care Cauti Physician Documentation - Urinary Catheter Management Urethral (Xie) Date of Insertion: 01/17/21 Time of Insertion: 06:45
[2021-01-18] MEDS: DOCUSATE SODIUM 100 MG CAPSULE PO SCH ×2 (12:22→20:26)
[2021-01-19] MEDS: IBUPROFEN 800 MG TABLET PO PRN ×2 (02:16→08:57)
--- NOTE | 2021-01-19 08:42 | PN ---
Subjective - Date and Time Seen Date: 01/19/21 Time: 08:40 Objective - Vitals Vitals: Last Vital Signs Temp 36.6 C 01/18/21 19:13 Pulse 94 01/18/21 20:26 Resp 16 01/18/21 19:13 BP 117/72 01/18/21 20:26 Pulse Ox 98 01/18/21 19:13 Patient denies complaints. Ambulating well. Tolerating regular diet. Pain well controlled. Lochia wnl. Abdomen - soft, appropriately tender Incision -clean, dry, intact uterus - firm, at umbilicus -2 No calf tenderness Impression: Post op day #2 s/p repeat section. Gestational diabetes- resolved. Chronic hypertension-stable. Patient desires early discharge. Plan: Continue routine post-operative/ care. Routine discharge instructions given to patient. Cauti Physician Documentation - Urinary Catheter Management Urethral (Xie) Date of Insertion: 01/17/21 Time of Insertion: 06:45 Assessment/Plan - Problems/Diagnosis (1) Previous section Problem: Chronic (2) Gestational diabetes Problem: Resolved Qualifiers: Gestational diabetes mellitus control: insulin-controlled Trimester: third trimester Qualified Code(s): O24.414 - Gestational diabetes mellitus in , insulin controlled (3) Hypertension Problem: Chronic Qualifiers: Hypertension type: unspecified Qualified Code(s): I10 - Essential (primary) hypertension (4) Anxiety Problem: Chronic
--- NOTE | 2021-01-19 08:46 | DS ---
OB Discharge Summary (1) Previous section Status: Chronic (2) Gestational diabetes Status: Resolved Qualifiers: Gestational diabetes mellitus control: insulin-controlled Trimester: third trimester Qualified Code(s): O24.414 - Gestational diabetes mellitus in , insulin controlled (3) Hypertension Status: Chronic Qualifiers: Hypertension type: unspecified Qualified Code(s): I10 - Essential (primary) hypertension (4) Anxiety Status: Chronic Delivery Date: 01/17/21 Delivery Time: 08:14 :: 2 Para:: 2 Gestational weeks:: 39 Gestational days:: 0 Intrapartum Procedures: Secondary Section, Delivery-Low Transverse, Anesthesia - Spinal Discharge Diagnosis: Term -Delivered - Discharge Information Date of Discharge: 01/19/21 Hospital Course: 30-year-old 2 now para 2 admitted at 39 weeks for repeat low transverse section due to prior section. This complicated by chronic hypertension controlled on medication, gestational diabetes controlled on insulin which resolved, and anxiety. Her delivery and course were uncomplicated and she was discharged on postoperative day 2 per her request. Discharge Location: Home Disposition: Home self-care Condition: Good Referrals: Liz Hobbs FNP [Primary Care Provider] - Activity on Discharge:: Activity as tolerated, Pelvic Rest, No lifting Discharge Diet: General/regular food Additional Patient Instructions (free text): Please call [facility] to schedule your week post op/post visit with Dr. Du. Please call [facility] or [facility]- [phone] with any problems or concerns. Please call [facility] to schedule Jerry's follow up visit with Dr. Peace Edwards's blood type is O positive Jerry passed her hearing screen Prescriptions (Any new or edited meds): Ibuprofen [Motrin] 200 - 800 mg PO Q6H PRN #100 tab PRN Reason: Pain oxyCODONE HCL/ACETAMINOPHEN [Percocet 5 MG/325 MG] 1 tab PO Q4H PRN #10 tab PRN Reason: Moderate Pain Transmission Status: Received by [place], [place] Complete Home Medications List: Complete Home Medication List: fexofenadine 180 mg tablet 180 mg PO DAILY 01/28/19 biotin 5 mg capsule 5 mg PO DAILY 06/11/20 calcium carbonate 500 mg calcium (1,250 mg) chewable tablet 500 mg PO DAILY 06/11/20 metoprolol succinate 25 mg tablet,extended release 24 hr 25 mg PO BID #60 tab 06/11/20 magnesium 250 mg tablet 1,000 mg PO DAILY PRN 08/12/20 ferrous sulfate 325 mg (65 mg iron) tablet 325 mg PO DAILY #30 tab 10/28/20 Vits96/Iron Fum/Folic [ S] 1 tab PO DAILY 01/01/21 Ibuprofen [Motrin] 200 - 800 mg PO Q6H PRN #100 tab 01/18/21 oxyCODONE HCL/ACETAMINOPHEN [Percocet 5 MG/325 MG] 1 tab PO Q4H PRN #10 tab 01/18/21 - Plan Discharge to:: Home Follow up in office in:: 2 weeks - Information Weight (Grams): 3,389 Sex: Female Score 1 min: 9 Score 5 min: 9 Infant Complications: None
[2021-01-19] MEDS: LORATADINE 10 MG TABLET PO SCH (08:57)
[2021-01-19] MEDS: METOPROLOL SUCCINATE 25 MG TABLET.SA PO SCH (08:57)
[2021-01-19] MEDS: FERROUS SULFATE 325 MG TABLET PO SCH (08:57)
[2021-01-19] MEDS: PRENATAL VITS96/IRON FUM/FOLIC 1 TAB TABLET PO SCH (08:57)
[2021-01-19] MEDS: oxyCODONE HCL/ACETAMINOPHEN 1 TAB TABLET PO PRN (10:25)
[2021-01-19] MEDS: DOCUSATE SODIUM 100 MG CAPSULE PO SCH (10:26)
[2021-01-19] MEDS: MAGNESIUM OXIDE 400 MG TABLET PO SCH (10:42)
[2021-01-19] MEDS: CALCIUM CARBONATE 500 MG TAB.CHEW PO SCH (10:42)
[2021-01-19 15:43] VITALS: BP 132/76
== END 2021-01-19 12:50 | disposition home or self-care (01) | DRG 788 ==
LOC: OB 05:02
PROVIDERS: ADMIT Obstetrics & Gynecology; ATTEND Obstetrics & Gynecology
DX: Z37.0 Single live birth; Z3A.38 38 weeks gestation of pregnancy; O24.424 Gestational diabetes mellitus in childbirth, insulin controlled; Z98.891 History of uterine scar from previous surgery; F41.9 Anxiety disorder, unspecified; I10 Essential (primary) hypertension